=== PATIENT | female | born 1950 | race Caucasian/White ===

== ENCOUNTER → 2017-11-10 | Outpatient (CLI) | payer MEDICARE, BC ==
[~2017-11-10] MED LIST: ACET-1966 PO; ASPI-1471 PO; ATOR40TA24 PO; CHOL500045 PO; CHOL500050 PO; CYAN25004 PO; DONE10TA89 PO; ESTR0.62 PO; GLAT20KI3 SQ; IBUP200C71 PO; IBUP600T22 PO; LEV112 PO; LEV125 PO; LOR5/325 PO; LORA10CA3 PO; NAT300I IV; OMEP40CA45 PO; PER PO; PRED-420 PO; TERI14TA PO; THYR15TA6 PO; TRAZ-156 PO; VEN75 PO; VENL100T22 PO; VENL150C61 PO
[2017-11-10 12:08] LABS: PLATELET COUNT, AUTOMATED 205 K/uL (150-450)
== END ==
LOC: LAB 11:13
PROVIDERS: ATTEND Specialist
DX: G35 Multiple sclerosis (principal); D89.89 Other specified disorders involving the immune mechanism, not elsewhere classified
CPT/HCPCS: 36415; 82040; 82247; 82310; 82374; 82435; 82565; 82947; 84075; 84132; 84155; 84295; 84450; 84460; 84520; 85025; 88184; 88185

== ENCOUNTER 2018-01-28 05:10 | Emergency (ER) | payer MEDICARE, BC ==
[~2018-01-28 05:10] MED LIST changes: -LORA-1456 PO; -OCRE300V IM ONLY; -ONDA4TAB PO
--- NOTE | 2018-01-28 05:14 | ER Report ---
History and Physical Time Seen By MD: 05:14 HPI/ROS CHIEF COMPLAINT: Vomiting, epigastric and chest pain HISTORY OF PRESENT ILLNESS: 68-year-old female with a history of MS, on immunosuppressive drugs presents to the ER after vomiting at 10:30 PM last night. She notes gastroesophageal burning. She notes substernal chest pain and epigastric pain. She is feeling very anxious. Patient has no history of cardiac disease. Currently. She's expressing severe nausea. REVIEW OF SYSTEMS: Respiratory: No cough, no dyspnea. Cardiovascular: As above Gastrointestinal: As above Musculoskeletal: No back pain. Allergies: Coded Allergies: dimethyl fumarate (Verified Allergy, Intermediate, HIVES, 01/28/18) Sulfa (Sulfonamide Antibiotics) (Verified Allergy, Mild, ITCH, 01/28/18) codeine (Verified Allergy, Mild, VOMITING, 01/28/18) Penicillins (Verified Allergy, Unknown, RASH, 01/28/18) Home Meds Active Scripts Lorazepam (ATIVAN) 1 Mg Tablet, 1 MG PO Q6-8H Y for ANXIETY, #15 Prov:NACHO MOLINA DO 01/28/18 Ondansetron (ZOFRAN ODT) 4 Mg Tab.rapdis, 4 MG PO every 6 hours Y for NAUSEA/ VOMITING, #15 TAB TAKE 1 TABLET BY MOUTH EVERY 12 HOURS Prov:NACHO MOLINA DO 01/28/18 Reported Medications Ocrelizumab (Ocrevus) 300 Mg/10 Ml Vial, 1 DOSE-PACK IM ONLY [id number] 01/28/18 Loratadine (CLARITIN) 10 Mg Capsule, 10 MG PO DAILY Y for ITCHING, CAPSULE 01/12/16 Aspirin (ASPIR 81) 81 Mg Tablet.dr, 81 MG PO QDAY, TAB 01/12/16 Cholecalciferol (Vitamin D3) (VITAMIN D3) 50,000 Unit Capsule, 04020 UNIT PO WEEKLY, CAPSULE 01/12/16 Omeprazole (PRILOSEC) 40 Mg Capsule.dr, 1 TAB PO QHS, TAB 01/12/16 Trazodone Hcl (TRAZODONE HCL) 50 Mg Tablet, 25-50 MG PO QHS 01/12/16 Atorvastatin Calcium (LIPITOR) 40 Mg Tablet, 1 TAB PO QDAY, TAB 01/12/16 Levothyroxine Sodium (LEVOTHYROXINE SODIUM) 0.112 Mg Tab, 0.112 MG PO QDAY, TAB 01/12/16 Discontinued Reported Medications Acetaminophen (TYLENOL) Unknown Strength Tablet, 325 MG PO PRN, TAB 09/29/16 Donepezil Hcl (ARICEPT) 10 Mg Tablet, 10 MG PO QPM, TAB 01/12/16 Venlafaxine Hcl (VENLAFAXINE HCL) 100 Mg Tablet, 187 MG PO QDAY 01/12/16 Teriflunomide (AUBAGIO) 14 Mg Tablet, 14 MG PO QDAY 01/12/16 Discontinued Scripts Ibuprofen (IBUPROFEN) 600 Mg Tablet, 1 TAB PO Q8H for pain, #30 TAB 0 Refills TAKE WITH FOOD EVERY 6 HOURS Prov:GRAY MCINTYRE MD 01/14/16 Past Medical/Surgical History Allergic rhinitis, GERD, MS on immunosuppression, hypothyroidism Reviewed Nurses Notes: Yes Old Medical Records Reviewed: Yes Hx Smoking: No Smoking Status: Never Smoker Exposure to Second Hand Smoke?: Yes (WHILE GROWING UP) Hx Alcohol Use: Yes Constitutional Vital Sign - Last 24 Hours 01/28/18 01/28/18 01/28/18 01/28/18 05:12 05:13 05:23 05:25 Temp 99.5 Pulse 102 99 Resp 19 21 B/P (MAP) 142/101 (115) 142/101 126/88 (101) Pulse Ox 94 92 O2 Delivery Room Air 01/28/18 01/28/18 01/28/18 01/28/18 05:30 05:40 05:55 06:00 Pulse 91 102 Resp 24 B/P (MAP) 138/85 (102) 139/84 (102) Pulse Ox 83 01/28/18 01/28/18 06:10 06:16 Pulse 102 Resp 24 Pulse Ox 89 O2 Delivery Room Air Physical Exam General Appearance: The patient is alert, has no immediate need for airway protection and no current signs of toxicity. Alert and oriented 3. Mild distress, skin warm and dry HEENT: Pupils equal and round no injection. Oropharynx without redness or exudate, mucous members are moist Respiratory: Chest is non tender, lungs are clear to auscultation. No chest wall tenderness Cardiac: regular rate and rhythm. Occasional ectopic beat, no murmur Gastrointestinal: Abdomen is soft and non tender, no masses, bowel sounds normal. Musculoskeletal: Neck: Neck is supple and non tender. No JVD, no lymphadenopathy Extremities have full range of motion and are non tender. No edema, no calf tenderness Skin: No rashes or lesions. DIFFERENTIAL DIAGNOSIS: After history and physical exam differential diagnosis was considered for abdominal pain including but not limited to appendicitis, cholecystitis, gastritis and urinary tract infection. Additionally,chest pain including but not limited to myocardial ischemia, gastroesophageal reflux disease pericarditis pulmonary embolus, chest wall pain, pleural inflammation and pulmonary infectious causes. Medical Decision Making Data Points Result Diagram: 01/28/18 0520 01/28/18 0520 Laboratory Hematology Test 01/28/18 00:00 01/28/18 05:20 Amylase Level 59 U/L (0-110) Lipase 21 U/L (23-300) Red Blood Count 5.12 M/uL (4.17-5.56) Mean Corpuscular Volume 85.0 fL (80.0-96.0) Mean Corpuscular Hemoglobin 29.5 pg (26.0-33.0) Mean Corpuscular Hemoglobin Concent 34.7 g/dL (32.0-36.0) Red Cell Distribution Width 14.8 % (11.5-14.5) Mean Platelet Volume 8.6 fL (7.2-11.1) Neutrophils (%) (Auto) 83.8 % (39.4-72.5) Lymphocytes (%) (Auto) 8.8 % (17.6-49.6) Monocytes (%) (Auto) 5.9 % (4.1-12.4) Eosinophils (%) (Auto) 0.9 % (0.4-6.7) Basophils (%) (Auto) 0.6 % (0.3-1.4) Nucleated RBC Relative Count (auto) 0.0 /100WBC Neutrophils # (Auto) 7.9 K/uL (2.0-7.4) Lymphocytes # (Auto) 0.8 K/uL (1.3-3.6) Monocytes # (Auto) 0.6 K/uL (0.3-1.0) Eosinophils # (Auto) 0.1 K/uL (0.0-0.5) Basophils # (Auto) 0.1 K/uL (0.0-0.1) Nucleated RBC Absolute Count (auto) 0.00 K/uL Prothrombin Time 14.5 seconds (12.0-14.4) Prothromb Time International Ratio 1.12 Activated Partial Thromboplast Time 26 seconds (23-35) D-Dimer Quantitative (PE/DVT) 0.49 ug/ml (0-0.50) Sodium Level 140 mmol/L (137-145) Potassium Level 3.8 mmol/L (3.5-5.0) Chloride Level 102 mmol/L (98-107) Carbon Dioxide Level 24 mmol/L (22-31) Blood Urea Nitrogen 15 mg/dl (7-18) Creatinine 1.10 mg/dl (0.52-1.04) Glomerular Filtration Rate Calc 49.5 Random Glucose 165 mg/dl (75-110) Calcium Level 9.0 mg/dl (8.4-10.2) Total Bilirubin 0.5 mg/dl (0.2-1.3) Aspartate Amino Transf (AST/SGOT) 21 U/L (0-35) Alanine Aminotransferase (ALT/SGPT) 34 U/L (0-56) Alkaline Phosphatase 95 U/L (0-126) Troponin I < 0.012 ng/ml B-Type Natriuretic Peptide 8 pg/ml (0-100) Total Protein 7.1 gm/dl (6.3-8.2) Albumin 4.2 g/dl (3.5-5.0) Chemistry Test 01/28/18 00:00 01/28/18 05:20 Amylase Level 59 U/L (0-110) Lipase 21 U/L (23-300) White Blood Count 9.5 k/uL (4.5-11.0) Red Blood Count 5.12 M/uL (4.17-5.56) Hemoglobin 15.1 g/dL (12.0-16.0) Hematocrit 43.5 % (34.0-47.0) Mean Corpuscular Volume 85.0 fL (80.0-96.0) Mean Corpuscular Hemoglobin 29.5 pg (26.0-33.0) Mean Corpuscular Hemoglobin Concent 34.7 g/dL (32.0-36.0) Red Cell Distribution Width 14.8 % (11.5-14.5) Platelet Count 174 K/uL (150-450) Mean Platelet Volume 8.6 fL (7.2-11.1) Neutrophils (%) (Auto) 83.8 % (39.4-72.5) Lymphocytes (%) (Auto) 8.8 % (17.6-49.6) Monocytes (%) (Auto) 5.9 % (4.1-12.4) Eosinophils (%) (Auto) 0.9 % (0.4-6.7) Basophils (%) (Auto) 0.6 % (0.3-1.4) Nucleated RBC Relative Count (auto) 0.0 /100WBC Neutrophils # (Auto) 7.9 K/uL (2.0-7.4) Lymphocytes # (Auto) 0.8 K/uL (1.3-3.6) Monocytes # (Auto) 0.6 K/uL (0.3-1.0) Eosinophils # (Auto) 0.1 K/uL (0.0-0.5) Basophils # (Auto) 0.1 K/uL (0.0-0.1) Nucleated RBC Absolute Count (auto) 0.00 K/uL Prothrombin Time 14.5 seconds (12.0-14.4) Prothromb Time International Ratio 1.12 Activated Partial Thromboplast Time 26 seconds (23-35) D-Dimer Quantitative (PE/DVT) 0.49 ug/ml (0-0.50) Glomerular Filtration Rate Calc 49.5 Calcium Level 9.0 mg/dl (8.4-10.2) Total Bilirubin 0.5 mg/dl (0.2-1.3) Aspartate Amino Transf (AST/SGOT) 21 U/L (0-35) Alanine Aminotransferase (ALT/SGPT) 34 U/L (0-56) Alkaline Phosphatase 95 U/L (0-126) Troponin I < 0.012 ng/ml B-Type Natriuretic Peptide 8 pg/ml (0-100) Total Protein 7.1 gm/dl (6.3-8.2) Albumin 4.2 g/dl (3.5-5.0) Coagulation Test 01/28/18 05:20 Prothrombin Time 14.5 seconds Prothromb Time International Ratio 1.12 Activated Partial Thromboplast Time 26 seconds D-Dimer Quantitative (PE/DVT) 0.49 ug/ml EKG/Imaging EKG Interpretation 12 lead EK Rhythm: normal sinus rhythm with frequent unifocal PVCs [place]: normal QRS: normal,? Old anterior Q waves ST segments: normal, comparison to previous EKG dated 01/12/16, no significant morphologic change, Imaging X-ray: Single view portable chest x-ray was obtained. I viewed the images myself on the PACS system. My interpretation of the images is: No infiltrate, no effusion, normal mediastinum. The radiologist interpretation had no clinically significant variation from this interpretation. ED Course/Re-evaluation Clinical Indication for ER IV: Hydration, IV Access ED Course Patient was admitted to an examination room. H&P was done. The differential diagnoses was considered. On clinical examination, patient appears anxious. She's had episode of vomiting. She is noting severe nausea at this time. Patient's treated with IV fluids, aspirin 324 mg Zofran, Ativan. Her diagnostic studies are unremarkable. Her troponin and d-dimer were unremarkable. Her EKG shows no evidence of ischemic changes compared to previous EKG from 2016. Her chest x-rays unremarkable. On reevaluation patient feels completely better. She states her symptoms have resolved. She is discharged home on Zofran and Ativan and advised to follow-up with her primary care and her neurologist as needed. Decision to Disposition Date: Jan 28, 2018 Decision to Disposition Time: 06:14 Depart Departure Latest Vital Signs Vital Signs Date Time Temp Pulse Resp B/P (MAP) Pulse Ox O2 Delivery O2 Flow Rate FiO2 01/28/18 06:16 89 Room Air 01/28/18 06:10 102 24 01/28/18 06:00 139/84 (102) 01/28/18 05:13 99.5 Impression: Primary Impression: Vomiting Additional Impressions: GERD (gastroesophageal reflux disease) Chest pain Condition: Improved Disposition: HOME OR SELF-CARE Referrals: JULIO CÉSAR MUSA (PCP) New Scripts Lorazepam (ATIVAN) 1 Mg Tablet 1 MG PO Q6-8H Y for ANXIETY, #15 Prov: NACHO MOLINA DO 01/28/18 Ondansetron (ZOFRAN ODT) 4 Mg Tab.rapdis 4 MG PO every 6 hours Y for NAUSEA/VOMITING, #15 TAB TAKE 1 TABLET BY MOUTH EVERY 12 HOURS Prov: NACHO MOLINA DO 01/28/18 Patient Instructions: Chest Pain (ED), Gastroesophageal Reflux Disease (ED) Additional Instructions: Follow-up with primary care if unimproved in 3-5 days Problem Qualifiers Primary Impression: Vomiting Vomiting type: unspecified Vomiting Intractability: unspecified Nausea presence: unspecified Qualified Codes: R11.10 - Vomiting, unspecified Additional Impressions: GERD (gastroesophageal reflux disease) Esophagitis presence: esophagitis presence not specified Qualified Codes: K21.9 - Gastro-esophageal reflux disease without esophagitis Chest pain Chest pain type: unspecified Qualified Codes: R07.9 - Chest pain, unspecified NACHO MOLINA DO Jan 28, 2018 05:14
[2018-01-28] MEDS ORDERED: OCRE300V IM ONLY (05:22)
[2018-01-28] MEDS ORDERED: ONDANSETRON 4 MG/2 ML VIAL IVP ONE (05:25)
[2018-01-28] MEDS ORDERED: ASPIRIN 81 MG CHEW PO ONE (05:25)
[2018-01-28] MEDS ORDERED: LORazepam 2 MG/ML VIAL IVP ONE (05:25)
[2018-01-28 05:33] LABS: PLATELET COUNT, AUTOMATED 174 K/uL (150-450)
[2018-01-28 05:41] LABS: INR 1.12
--- NOTE | 2018-01-28 05:58 | RADIOLOGY IMAGING REPORT ---
FACILITY: [facility] - [place] PATIENT NAME: Jami Felipe : 1950 MR: [id number] V: [id number] EXAM DATE: ORDERING PHYSICIAN: NACHO MOLINA TECHNOLOGIST: Location: [facility] - [place] Patient: Jami Felipe : 1950 Visit/Account:[id number] Date of Sevice: 01/28/2018 SINGLE AP RADIOGRAPH OF THE CHEST 01/28/2018 5:23 AM. INDICATION: Chest Pain COMPARISON: 10/31/2009. FINDINGS: Lungs are well-expanded. There is no consolidation. No pleural effusion or pneumothorax. Heart size i s normal. IMPRESSION: No acute abnormality. Report Dictated By: Silvestre Isaac MD at 01/28/2018 5:52 AM Report E-Signed By: Silvestre Isaac MD at 01/28/2018 5:54 AM [id number]
[2018-01-28 06:00] VITALS: BP 139/84
--- NOTE | 2018-01-28 06:10 | EKG ---
[place] [facility] [place] NAME: ANJALI WESLEY : [id number] MR: [id number] V: [id number] EXAM DATE: ORDERING PHYSICIAN: NACHO MOLINA TECHNOLOGIST: Volodymyr Benson Reason : Blood Pressure : / mmHG Vent. Rate : 098 BPM Atrial Rate : 098 BPM P-R Int : 164 ms QRS Dur : 076 ms QT Int : 318 ms P-R-T Axes : 036 027 058 degrees QTc Int : 405 ms Sinus rhythm with frequent premature ventricular complexes Anterior infarct , age undetermined Abnormal ECG When compared with ECG of 12-JAN-2016 12:14, premature ventricular complexes are now present Vent. rate has increased BY 32 BPM Confirmed by HAVEN RIVAS ([id number]) on 01/28/2018 6:16:34 AM Referred By: Confirmed By:HAVEN RIVAS
[2018-01-28] MEDS ORDERED: LORA-1456 PO (06:18)
[2018-01-28] MEDS ORDERED: ONDA4TAB PO (06:18)
== END 2018-01-28 06:16 | disposition home or self-care (01) ==
LOC: ER 05:15
DX: K21.9 Gastro-esophageal reflux disease without esophagitis (principal); R11.10 Vomiting, unspecified; R07.9 Chest pain, unspecified; R94.31 Abnormal electrocardiogram [ECG] [EKG]
CPT/HCPCS: 71045; 82150; 83690; 83880; 84484; 85025; 85379; 85610; 85730; 93005; 96374; 96375; 99284; A9270; J2060; J2405; 82040; 82247; 82310; 82374; 82435; 82565; 82947; 84075; 84132; 84155; 84295; 84450; 84460; 84520

== ENCOUNTER 2018-01-28 16:27 | Emergency (ER) | payer MEDICARE, BC ==
[~2018-01-28 16:27] MED LIST changes: +LORA-1456 PO; +OCRE300V IM ONLY; +ONDA4TAB PO
[2018-01-28] MEDS ORDERED: cefTRIAXone 2 GM VIAL IVP ONE (17:20)
[2018-01-28] MEDS ORDERED: ACETAMINOPHEN 500 MG TAB PO ONE (17:25)
--- NOTE | 2018-01-28 17:30 | ER Report ---
History and Physical Time Seen By MD: 16:45 Hx. of Stated Complaint: patients reports a decline in mentation throughout the day. the believe that this is a MS exacerbation (OSCAR VINSON MD) HPI/ROS This is a 68-year-old female with a history of MS. She was seen in the emergency department earlier today for chest pain and nausea that she described as a panic attack. She returns to emergency department with a decline in mental status per her and also now with a fever. The patient states that she has had flulike symptoms for the past 2-3 days. No focal pain. She denies headache or neck pain. She has had no medication changes to her MS meds. She was given Ativan this morning upon discharge from the emergency department and has taken 2 doses of Ativan today. Her who is at the bedside states that she has had previous episodes of mental status changes and she hasn't MS exacerbation. She denies abdominal pain or dysuria. She has not been on any recent antibiotics. (OSCAR VINSON MD) Allergies: Coded Allergies: dimethyl fumarate (Verified Allergy, Intermediate, HIVES, 01/28/18) Sulfa (Sulfonamide Antibiotics) (Verified Allergy, Mild, ITCH, 01/28/18) codeine (Verified Allergy, Mild, VOMITING, 01/28/18) Penicillins (Verified Allergy, Unknown, RASH, 01/28/18) Home Meds Active Scripts Lorazepam (ATIVAN) 1 Mg Tablet, 1 MG PO Q6-8H Y for ANXIETY, #15 Prov:NACHO MOLINA DO 01/28/18 Ondansetron (ZOFRAN ODT) 4 Mg Tab.rapdis, 4 MG PO every 6 hours Y for NAUSEA/ VOMITING, #15 TAB TAKE 1 TABLET BY MOUTH EVERY 12 HOURS Prov:NACHO MOLINA DO 01/28/18 Reported Medications Ocrelizumab (Ocrevus) 300 Mg/10 Ml Vial, 1 DOSE-PACK IM ONLY [id number] 01/28/18 Loratadine (CLARITIN) 10 Mg Capsule, 10 MG PO DAILY Y for ITCHING, CAPSULE 01/12/16 Aspirin (ASPIR 81) 81 Mg Tablet.dr, 81 MG PO QDAY, TAB 01/12/16 Cholecalciferol (Vitamin D3) (VITAMIN D3) 50,000 Unit Capsule, 95437 UNIT PO WEEKLY, CAPSULE 01/12/16 Omeprazole (PRILOSEC) 40 Mg Capsule.dr, 1 TAB PO QHS, TAB 01/12/16 Trazodone Hcl (TRAZODONE HCL) 50 Mg Tablet, 25-50 MG PO QHS 01/12/16 Atorvastatin Calcium (LIPITOR) 40 Mg Tablet, 1 TAB PO QDAY, TAB 01/12/16 Levothyroxine Sodium (LEVOTHYROXINE SODIUM) 0.112 Mg Tab, 0.112 MG PO QDAY, TAB 01/12/16 Discontinued Reported Medications Acetaminophen (TYLENOL) Unknown Strength Tablet, 325 MG PO PRN, TAB 09/29/16 Donepezil Hcl (ARICEPT) 10 Mg Tablet, 10 MG PO QPM, TAB 01/12/16 Venlafaxine Hcl (VENLAFAXINE HCL) 100 Mg Tablet, 187 MG PO QDAY 01/12/16 Teriflunomide (AUBAGIO) 14 Mg Tablet, 14 MG PO QDAY 01/12/16 Discontinued Scripts Ibuprofen (IBUPROFEN) 600 Mg Tablet, 1 TAB PO Q8H for pain, #30 TAB 0 Refills TAKE WITH FOOD EVERY 6 HOURS Prov:GRAY MCINTYRE MD 01/14/16 Hx Smoking: No Smoking Status: Never Smoker Exposure to Second Hand Smoke?: Yes (WHILE GROWING UP) Hx Substance Use Disorder: No Hx Alcohol Use: Yes (OSCAR VINSON MD) Constitutional Vital Sign - Last 24 Hours 01/28/18 01/28/18 01/28/18 01/28/18 16:27 16:32 16:36 16:42 Temp 103.1 Pulse ??? 87 90 Resp 8 B/P (MAP) 124/65 (84) 124/65 (84) Pulse Ox 90 90 O2 Delivery Nasal Cannula O2 Flow Rate 3 01/28/18 01/28/18 01/28/18 01/28/18 16:48 16:53 16:57 17:00 Temp 103.1 Pulse 95 93 Resp 24 B/P (MAP) 124/65 121/79 (93) 115/71 (86) Pulse Ox 91 89 O2 Delivery Nasal Cannula 01/28/18 01/28/18 01/28/18 01/28/18 17:12 17:30 17:57 18:00 Pulse 93 B/P (MAP) 119/82 (94) 103/59 (74) Pulse Ox 90 93 01/28/18 01/28/18 01/28/18 01/28/18 18:05 18:20 18:24 18:25 Temp 103.1 100.3 Pulse 87 84 Resp 12 19 Pulse Ox 91 91 01/28/18 01/28/18 01/28/18 01/28/18 18:30 18:35 18:38 18:50 Pulse 100 89 Resp 54 18 B/P (MAP) 78/44 (55) 102/70 (81) Pulse Ox 90 94 01/28/18 01/28/18 01/28/18 01/28/18 18:55 18:55 19:00 19:10 Pulse 89 92 Resp 22 14 B/P (MAP) 90/43 (59) Pulse Ox 92 92 O2 Flow Rate 3.0 01/28/18 01/28/18 01/28/18 01/28/18 19:25 19:30 19:40 19:55 Pulse 85 89 94 Resp 20 B/P (MAP) 104/68 (80) Pulse Ox 94 87 91 01/28/18 01/28/18 01/28/18 01/28/18 20:00 20:15 20:18 20:19 Pulse 93 96 B/P (MAP) 77/53 (61) 81/53 (62) 108/68 (81) Pulse Ox 86 90 01/28/18 01/28/18 20:30 20:40 Temp 99.2 Pulse 88 B/P (MAP) 85/60 (68) Pulse Ox 89 (NACHO MOLINA DO) Medical Decision Making Data Points Result Diagram: 01/28/18 1642 01/28/18 1642 Laboratory Hematology Test 01/28/18 16:42 01/28/18 17:36 01/28/18 17:47 01/28/18 17:58 Red Blood Count 5.00 M/uL (4.17-5.56) Mean Corpuscular Volume 86.1 fL (80.0-96.0) Mean Corpuscular Hemoglobin 29.3 pg (26.0-33.0) Mean Corpuscular Hemoglobin Concent 34.0 g/dL (32.0-36.0) Red Cell Distribution Width 15.0 % (11.5-14.5) Mean Platelet Volume 9.2 fL (7.2-11.1) Neutrophils (%) (Auto) 82.0 % (39.4-72.5) Lymphocytes (%) (Auto) 11.1 % (17.6-49.6) Monocytes (%) (Auto) 6.0 % (4.1-12.4) Eosinophils (%) (Auto) 0.2 % (0.4-6.7) Basophils (%) (Auto) 0.7 % (0.3-1.4) Nucleated RBC Relative Count (auto) 0.0 /100WBC Neutrophils # (Auto) 8.3 K/uL (2.0-7.4) Lymphocytes # (Auto) 1.1 K/uL (1.3-3.6) Monocytes # (Auto) 0.6 K/uL (0.3-1.0) Eosinophils # (Auto) 0.0 K/uL (0.0-0.5) Basophils # (Auto) 0.1 K/uL (0.0-0.1) Nucleated RBC Absolute Count (auto) 0.00 K/uL Sodium Level 139 mmol/L (137-145) Potassium Level 4.0 mmol/L (3.5-5.0) Chloride Level 102 mmol/L (98-107) Carbon Dioxide Level 24 mmol/L (22-31) Blood Urea Nitrogen 16 mg/dl (7-18) Creatinine 1.30 mg/dl (0.52-1.04) Glomerular Filtration Rate Calc 40.9 Random Glucose 136 mg/dl (75-110) Calcium Level 8.9 mg/dl (8.4-10.2) Total Bilirubin 0.5 mg/dl (0.2-1.3) Aspartate Amino Transf (AST/SGOT) 24 U/L (0-35) Alanine Aminotransferase (ALT/SGPT) 35 U/L (0-56) Alkaline Phosphatase 95 U/L (0-126) Ammonia < 9 UMOL/L (9-33) Troponin I 0.639 ng/ml Total Protein 6.6 gm/dl (6.3-8.2) Albumin 4.0 g/dl (3.5-5.0) Serum Alcohol < 10 mg/dl Lactate 1.4 mmol/L (0.7-2.1) Urine Color Ameena Urine Clarity Slightly-cloudy Urine pH 5.0 pH (4.8-9.5) Urine Specific [place] 1.028 Urine Protein 30 mg/dL (NEGATIVE) Urine Glucose (UA) Negative mg/dL (NEGATIVE) Urine Ketones Trace mg/dL (NEGATIVE) Urine Blood Negative (NEGATIVE) Urine Nitrite Negative (NEGATIVE) Urine Bilirubin Negative (NEGATIVE) Urine Urobilinogen 2.0 mg/dL (0.2-1.9) Urine Leukocyte Esterase Small (NEGATIVE) Urine RBC 1 /HPF (0-2/HPF) Urine WBC 18 /HPF (0-5/HPF) Urine Squamous Epithelial Cells None /LPF (NONE-FEW) Urine Transitional Epithelial Cells Few /LPF (NONE-FEW) Urine Bacteria Many /HPF (NONE-FEW) Urine Hyaline Casts Few /LPF (NONE-FEW) Urine Mucus Few /HPF (NONE-FEW) Urine Opiates Screen Negative Urine Barbiturates Screen Negative Ur Tricyclic Antidepressants Screen Negative Urine Phencyclidine Screen Negative Urine Amphetamines Screen Negative Urine Benzodiazepines Screen Positive Urine Cocaine Screen Negative Urine Cannabinoids Screen Negative CSF Appearance Clear (CLEAR) CSF Color Colorless (COLORLESS) CSF WBC 1 /mm3 (0-5) CSF RBC 21 /mm3 CSF Glucose 75 mg/dl CSF Total Protein 44 mg/dl (15-50) Test 01/28/18 18:56 Influenza Virus Type A (PCR) Negative (NEGATIVE) Influenza Virus Type B (PCR) Negative (NEGATIVE) Chemistry Test 01/28/18 16:42 01/28/18 17:36 01/28/18 17:47 01/28/18 17:58 White Blood Count 10.1 k/uL (4.5-11.0) Red Blood Count 5.00 M/uL (4.17-5.56) Hemoglobin 14.6 g/dL (12.0-16.0) Hematocrit 43.1 % (34.0-47.0) Mean Corpuscular Volume 86.1 fL (80.0-96.0) Mean Corpuscular Hemoglobin 29.3 pg (26.0-33.0) Mean Corpuscular Hemoglobin Concent 34.0 g/dL (32.0-36.0) Red Cell Distribution Width 15.0 % (11.5-14.5) Platelet Count 195 K/uL (150-450) Mean Platelet Volume 9.2 fL (7.2-11.1) Neutrophils (%) (Auto) 82.0 % (39.4-72.5) Lymphocytes (%) (Auto) 11.1 % (17.6-49.6) Monocytes (%) (Auto) 6.0 % (4.1-12.4) Eosinophils (%) (Auto) 0.2 % (0.4-6.7) Basophils (%) (Auto) 0.7 % (0.3-1.4) Nucleated RBC Relative Count (auto) 0.0 /100WBC Neutrophils # (Auto) 8.3 K/uL (2.0-7.4) Lymphocytes # (Auto) 1.1 K/uL (1.3-3.6) Monocytes # (Auto) 0.6 K/uL (0.3-1.0) Eosinophils # (Auto) 0.0 K/uL (0.0-0.5) Basophils # (Auto) 0.1 K/uL (0.0-0.1) Nucleated RBC Absolute Count (auto) 0.00 K/uL Glomerular Filtration Rate Calc 40.9 Calcium Level 8.9 mg/dl (8.4-10.2) Total Bilirubin 0.5 mg/dl (0.2-1.3) Aspartate Amino Transf (AST/SGOT) 24 U/L (0-35) Alanine Aminotransferase (ALT/SGPT) 35 U/L (0-56) Alkaline Phosphatase 95 U/L (0-126) Ammonia < 9 UMOL/L (9-33) Troponin I 0.639 ng/ml Total Protein 6.6 gm/dl (6.3-8.2) Albumin 4.0 g/dl (3.5-5.0) Serum Alcohol < 10 mg/dl Lactate 1.4 mmol/L (0.7-2.1) Urine Color Ameena Urine Clarity Slightly-cloudy Urine pH 5.0 pH (4.8-9.5) Urine Specific [place] Level 1.028 Urine Protein 30 mg/dL (NEGATIVE) Urine Glucose (UA) Negative mg/dL (NEGATIVE) Urine Ketones Trace mg/dL (NEGATIVE) Urine Blood Negative (NEGATIVE) Urine Nitrite Negative (NEGATIVE) Urine Bilirubin Negative (NEGATIVE) Urine Urobilinogen 2.0 mg/dL (0.2-1.9) Urine Leukocyte Esterase Small (NEGATIVE) Urine RBC 1 /HPF (0-2/HPF) Urine WBC 18 /HPF (0-5/HPF) Urine Squamous Epithelial Cells None /LPF (NONE-FEW) Urine Transitional Epithelial Cells Few /LPF (NONE-FEW) Urine Bacteria Many /HPF (NONE-FEW) Urine Hyaline Casts Few /LPF (NONE-FEW) Urine Mucus Few /HPF (NONE-FEW) Urine Opiates Screen Negative Urine Barbiturates Screen Negative Ur Tricyclic Antidepressants Screen Negative Urine Phencyclidine Screen Negative Urine Amphetamines Screen Negative Urine Benzodiazepines Screen Positive Urine Cocaine Screen Negative Urine Cannabinoids Screen Negative CSF Appearance Clear (CLEAR) CSF Color Colorless (COLORLESS) CSF WBC 1 /mm3 (0-5) CSF RBC 21 /mm3 CSF Glucose 75 mg/dl CSF Total Protein 44 mg/dl (15-50) Test 01/28/18 18:56 Influenza Virus Type A (PCR) Negative (NEGATIVE) Influenza Virus Type B (PCR) Negative (NEGATIVE) Toxicology Test 01/28/18 16:42 01/28/18 17:47 Serum Alcohol < 10 mg/dl Urine Opiates Screen Negative Urine Barbiturates Screen Negative Ur Tricyclic Antidepressants Screen Negative Urine Phencyclidine Screen Negative Urine Amphetamines Screen Negative Urine Benzodiazepines Screen Positive Urine Cocaine Screen Negative Urine Cannabinoids Screen Negative Urinalysis Test 01/28/18 17:47 Urine Color Ameena Urine Clarity Slightly-cloudy Urine pH 5.0 pH (4.8-9.5) Urine Specific [place] Level 1.028 Urine Protein 30 mg/dL (NEGATIVE) Urine Glucose (UA) Negative mg/dL (NEGATIVE) Urine Ketones Trace mg/dL (NEGATIVE) Urine Blood Negative (NEGATIVE) Urine Nitrite Negative (NEGATIVE) Urine Bilirubin Negative (NEGATIVE) Urine Urobilinogen 2.0 mg/dL (0.2-1.9) Urine Leukocyte Esterase Small (NEGATIVE) Urine RBC 1 /HPF (0-2/HPF) Urine WBC 18 /HPF (0-5/HPF) Urine Squamous Epithelial Cells None /LPF (NONE-FEW) Urine Transitional Epithelial Cells Few /LPF (NONE-FEW) Urine Bacteria Many /HPF (NONE-FEW) Urine Hyaline Casts Few /LPF (NONE-FEW) Urine Mucus Few /HPF (NONE-FEW) (NACHO MOLINA DO) Microbiology Microbiology Date/Time Source Procedure Growth Status 01/28/18 16:42 Blood Peripheral Draw Blood Culture - Preliminary NO GROWTH AFTER 1 DAY, REINCUBATED Resulted 01/28/18 16:42 Blood Peripheral Draw Blood Culture - Preliminary NO GROWTH AFTER 1 DAY, REINCUBATED Resulted 01/28/18 17:58 Cerebrospinal Fluid Gram Stain - Final Resulted 01/28/18 17:58 Cerebrospinal Fluid CSF Culture - Preliminary NO GROWTH AFTER 1 DAY, REINCUBATED Resulted (NACHO MOLINA DO) EKG/Imaging EKG Interpretation 12 lead EKG 1804 Rhythm: normal sinus rhythm with frequent PVCs, unifocal in nature [place]: normal QRS: normal ST segments: normal [ ] Monitor Interpretation: NSR with PVCs Imaging Results: CT scan of the head was obtained. The results of the study are EXAMINATION: Head CT without intravenous contrast HISTORY: Fever with altered mental status. COMPARISON: MRI of the brain from 01/24/2015. TECHNIQUE: Contiguous axial images were obtained from the skull base to the vertex without intravenous contrast. Sagittal and coronal reformatted images are also submitted. One of the following dose optimization techniques was utilized in the performance of this exam: Automated exposure control; adjustment of the mA and/ or kV according to the patient's size; or use of an iterative reconstruction technique. Specific details can be referenced in the facility's radiology CT exam operational policy. FINDINGS: Brain and intracranial structures: Ventricles, sulci, and cisterns are normal in size. Richards-white matter differentiation is maintained. Mild patchy hypoattenuation in the white matter. No midline shift, acute hemorrhage, acute infarct, or mass. Vessels: Calcified plaque along the carotid siphons. Calvarium / scalp: Negative. Skull base / visualized face: Leftward deviation of the nasal septum. Visualized sinuses / orbits: Small mucous retention cyst or polyp in the left maxillary sinus. Trace mucosal thickening in the right maxillary sinus. Mild mucosal thickening throughout the ethmoid air cells. IMPRESSION: No acute intracranial abnormality. Mild burden of small hypoattenuating foci in the white matter which may be related to the history of multiple sclerosis or chronic small vessel ischemic changes. The study was read by the radiologist. I viewed the images myself on the PACS system. (NACHO MOLINA DO) ED Course/Re-evaluation ED Course Patient was admitted to an examination room. H&P was done. The differential diagnoses was considered. Patient with altered mental status and a fever to 103. She has a history of MS, on immunosuppressive drugs. She had a CT scan which was unremarkable. Her white blood cell count is 10,100. There is a left shift with 82 segs. LP was performed which showed 1 wbc. Glucose and protein were unremarkable. A troponin was return elevated at 0.639. A repeat EKG shows no changes from her previous EKG early this morning. She received aspirin on this morning's visit. She's been pancultured. She received 2 g of Rocephin. She received acyclovir 1000 mg IV. She needs a higher level of care than is available at our facility. She'll be transferred to [facility] at her request. She needs cardiological consultation and neurologic consultation. And potentially infectious disease. 01/28/2018 7:20:07 pm case discussed with hospitalist at [facility]. Dr. Douglass hospitalist, who accepts the patient for transfer to her facility. Decision to Disposition Date: Jan 28, 2018 Decision to Disposition Time: 19:04 (NACHO MOLINA DO) Depart Departure Latest Vital Signs Vital Signs Date Time Temp Pulse Resp B/P (MAP) Pulse Ox O2 Delivery O2 Flow Rate FiO2 01/28/18 20:40 99.2 01/28/18 20:30 88 85/60 (68) 89 01/28/18 19:25 20 01/28/18 18:55 3.0 01/28/18 16:48 Nasal Cannula (NACHO MOLINA DO) Impression: Primary Impression: Fever Additional Impressions: Altered mental status MS (multiple sclerosis) Elevated troponin Condition: Improved Disposition: HOME OR SELF-CARE Referrals: JULIO CÉSAR MUSA (PCP) Problem Qualifiers Primary Impression: Fever Fever type: unspecified Qualified Codes: R50.9 - Fever, unspecified Additional Impressions: Altered mental status Altered mental status type: unspecified Qualified Codes: R41.82 - Altered mental status, unspecified OSCAR VINSON MD Jan 28, 2018 17:30 NACHO MOLINA DO Jan 28, 2018 19:06
[2018-01-28 17:33] LABS: PLATELET COUNT, AUTOMATED 195 K/uL (150-450)
--- NOTE | 2018-01-28 17:57 | RADIOLOGY IMAGING REPORT ---
FACILITY: [facility] - [place] PATIENT NAME: Jami Felipe : 1950 MR: [id number] V: [id number] EXAM DATE: ORDERING PHYSICIAN: OSCAR VINSON TECHNOLOGIST: [place] [facility] [place] Jami Felipe : 1950 Visit/Account:[id number] Date of Sevice: 01/28/2018 EXAMINATION: Head CT without intravenous contrast HISTORY: Fever with altered mental status. COMPARISON: MRI of the brain from 01/24/2015. TECHNIQUE: Contiguous axial images were obtained from the skull base to the vertex without intraven ous contrast. Sagittal and coronal reformatted images are also submitted. One of the following dose optimization techniques was utilized in the performance of this exam: Autom ated exposure control; adjustment of the mA and/or kV according to the patient's size; or use of an i terative reconstruction technique. Specific details can be referenced in the facility's radiology C T exam operational policy. FINDINGS: Brain and intracranial structures: Ventricles, sulci, and cisterns are normal in size. Richards-white ma tter differentiation is maintained. Mild patchy hypoattenuation in the white matter. No midline shift, acute hemorrhage, acute infarct, or mass. Vessels: Calcified plaque along the carotid siphons. Calvarium / scalp: Negative. Skull base / visualized face: Leftward deviation of the nasal septum. Visualized sinuses / orbits: Small mucous retention cyst or polyp in the left maxillary sinus. Trace mucosal thickening in the right maxillary sinus. Mild mucosal thickening throughout the ethmoid air cells. IMPRESSION: No acute intracranial abnormality. Mild burden of small hypoattenuating foci in the white matter which may be related to the history of multiple sclerosis or chronic small vessel ischemic changes. Report Dictated By: Ziyad Szymanski MD at 01/28/2018 5:47 PM Report E-Signed By: Ziyad Szymanski MD at 01/28/2018 5:53 PM WSN:[id number]
--- NOTE | 2018-01-28 18:56 | EKG ---
FACILITY: PATIENT NAME: ANJALI WESLEY : [id number] MR: [id number] V: [id number] EXAM DATE: ORDERING PHYSICIAN: OSCAR VINSON TECHNOLOGIST: BETHANY Test Reason : CP Blood Pressure : / mmHG Vent. Rate : 097 BPM Atrial Rate : 097 BPM P-R Int : 160 ms QRS Dur : 102 ms QT Int : 354 ms P-R-T Axes : 038 079 070 degrees QTc Int : 449 ms Sinus rhythm with frequent premature ventricular complexes Otherwise normal ECG When compared with ECG of 28-JAN-2018 05:14, QRS duration has increased Non-specific change in ST segment in Anterior leads T wave inversion no longer evident in Anterior leads Confirmed by CAITLIN VALENCIA ([id number]) on 01/29/2018 6:33:18 AM Referred By: KAREL Confirmed By:CAITLIN VALENCIA
[2018-01-28] MEDS ORDERED: ACYCLOVIR 500 MG/10ML VIAL 1,000 MG in NS(*) 0.9% 250 ML BAG 250 ML IVPB SCH (19:10)
[2018-01-28] MEDS ORDERED: ACYCLOVIR 500 MG/10ML VIAL 1,000 MG in NS(*) 0.9% 250 ML BAG 250 ML IVPB ONE (19:20)
[2018-01-28 20:30] VITALS: BP 85/60
[2018-01-28] MEDS ORDERED: NS(*) 0.9% 1000 ML BAG 1,000 ML IV ONE (21:00)
== END 2018-01-28 20:57 | disposition short-term general hospital (02) ==
LOC: ER 16:34
DX: R79.89 Other specified abnormal findings of blood chemistry (principal); R50.9 Fever, unspecified; R41.82 Altered mental status, unspecified; G35 Multiple sclerosis; I49.3 Ventricular premature depolarization
CPT/HCPCS: 36415; 70450; 80305; 81001; 82140; 82945; 83605; 84157; 84443; 84484; 85025; 87040; 87070; 87205; 87502; 89050; 93005; 96361; 96365; 96375; 99285; A4353; A9270; G0480; J0133; J0696; J7030; J7050; 80320; 82040; 82247; 82310; 82374; 82435; 82565; 82947; 84075; 84132; 84155; 84295; 84450; 84460; 84520

== ENCOUNTER → 2018-01-28 | Outpatient (CLI) | payer MEDICARE, BC ==
[~2018-01-28] MED LIST changes: +LORA-1456 PO; +OCRE300V IM ONLY; +ONDA4TAB PO
== END ==
LOC: AMB 20:30
PROVIDERS: ATTEND Nurse Practitioner
DX: R53.1 Weakness (principal); R41.82 Altered mental status, unspecified; R50.9 Fever, unspecified

== ENCOUNTER → 2018-05-12 | Outpatient (CLI) | payer MEDICARE, BC ==
[~2018-05-12] MED LIST changes: +IBUP-136 PO; -IBUP200C71 PO; -TRAZ-156 PO; +TRAZ50TA34 PO
[2018-05-12 08:36] LABS: PLATELET COUNT, AUTOMATED 194 K/uL (150-450)
== END ==
LOC: LAB 08:08
PROVIDERS: ATTEND Specialist
DX: G35 Multiple sclerosis (principal); Z79.899 Other long term (current) drug therapy
CPT/HCPCS: 36415; 82040; 82247; 82310; 82374; 82435; 82565; 82784; 82947; 84075; 84132; 84155; 84295; 84450; 84460; 84520; 85025; 88184; 88185

== ENCOUNTER → 2018-08-01 | Outpatient (CLI) | payer MEDICARE, BC ==
[~2018-08-01] MED LIST changes: +CELE100C4 PO
[2018-08-01 14:34] LABS: PLATELET COUNT, AUTOMATED 201 K/uL (150-450)
== END ==
LOC: LAB 13:48
PROVIDERS: ATTEND Emergency Medicine
DX: G35 Multiple sclerosis (principal); E55.9 Vitamin D deficiency, unspecified; E53.8 Deficiency of other specified B group vitamins
CPT/HCPCS: 36415; 82040; 82247; 82306; 82310; 82374; 82435; 82465; 82565; 82607; 82947; 83718; 84075; 84132; 84155; 84295; 84443; 84450; 84460; 84478; 84520; 85025

== ENCOUNTER → 2018-09-20 | Outpatient (CLI) | payer MEDICARE, BC ==
[~2018-09-20] MED LIST changes: +CYAN500T38 PO; +DULO40CA2 PO; +FLUO-202 PO; +LEVO112T44 PO; +OMEP40CA48 PO
== END ==
LOC: RESP 19:57
PROVIDERS: ATTEND Emergency Medicine
DX: G47.33 Obstructive sleep apnea (adult) (pediatric) (principal); G47.61 Periodic limb movement disorder; G47.36 Sleep related hypoventilation in conditions classified elsewhere

== ENCOUNTER → 2018-11-14 | Outpatient (CLI) | payer MEDICARE, BC ==
[2018-11-14 15:16] LABS: PLATELET COUNT, AUTOMATED 251 K/uL (150-450)
== END ==
LOC: LAB 14:46
PROVIDERS: ATTEND Specialist
DX: G35 Multiple sclerosis (principal); Z79.899 Other long term (current) drug therapy
CPT/HCPCS: 36415; 82040; 82247; 82310; 82374; 82435; 82565; 82784; 82947; 84075; 84132; 84155; 84295; 84450; 84460; 84520; 85025; 88184; 88185

== ENCOUNTER → 2019-03-27 | Outpatient (CLI) | payer MEDICARE, BC ==
[~2019-03-27] MED LIST changes: -CYAN500T38 PO; +CYAN500T39 PO; -TRAZ50TA34 PO; +TRAZ50TA52 PO
== END ==
LOC: LAB 10:51
PROVIDERS: ATTEND Specialist
DX: G35 Multiple sclerosis (principal); Z79.899 Other long term (current) drug therapy
CPT/HCPCS: 36415; 82565

== ENCOUNTER → 2019-05-16 | Outpatient (CLI) | payer MEDICARE, BC ==
[2019-05-16 10:47] LABS: PLATELET COUNT, AUTOMATED 195 K/uL (150-450)
== END ==
LOC: LAB 10:09
PROVIDERS: ATTEND Specialist
DX: G35 Multiple sclerosis (principal); Z79.899 Other long term (current) drug therapy
CPT/HCPCS: 36415; 82040; 82247; 82310; 82374; 82435; 82565; 82784; 82947; 84075; 84132; 84155; 84295; 84450; 84460; 84520; 85025; 88184; 88185